=== PATIENT | female | born 1950 | race Caucasian/White ===

== ENCOUNTER 2024-05-13 13:00 | Outpatient (RCR) | payer MEDICARE, SELFPAY | END 2024-05-13 13:05 | disposition home or self-care (01) | LOC: PT 13:00 | PROVIDERS: Visit Provider Internal Medicine Hematology & Oncology | DX: I89.0 Lymphedema, not elsewhere classified (principal) | CPT/HCPCS: 97110; 97140; 97163; 97164 ==